=== PATIENT | female | born 2000 | race Asian ===

== ENCOUNTER 2021-10-17 01:44 | Emergency (ER) | payer MEDICAID ==
[~2021-10-17] VITALS: Ht 160 cm; Wt 76.0 kg
[2021-10-17] MEDS ORDERED: TETANUS, DIPHTHERIA, PERTUSSIS VAC/PF 0.5ML (>10YR OLD) IM ONE (02:45)
[2021-10-17] MEDS ORDERED: ACETAMINOPHEN WITH CODEINE 300/30MG TABLET PO ONE (02:45)
[2021-10-17] MEDS ORDERED: BACITRACIN ZINC OINT UDPKT TOP ONE (02:45)
[2021-10-17 04:45] VITALS: BP 121/66
[2021-10-17 04:58] LABS: CLARITY URINE CLOUDY (CLEAR); COLOR URINE YELLOW (YELLOW); KETONES URINE TRACE (NEGATIVE); LEUKOCYTE ESTERASE URINE 2+ (NEGATIVE); NITRITE URINE NEGATIVE (NEGATIVE); OCCULT BLOOD URINE NEGATIVE (NEGATIVE); PH URINE 6.5 (4.5-8.0); PROTEIN URINE TRACE (NEGATIVE); SPECIFIC GRAVITY URINE 1.017 (1.005-1.030)
[2021-10-17] MEDS ORDERED: CEPH250C2 MT (05:06)
== END 2021-10-17 05:47 | disposition home or self-care (01) ==
LOC: ER 01:44
DX: S06.890A Other specified intracranial injury without loss of consciousness, initial encounter (principal); S80.212A Abrasion, left knee, initial encounter; S80.211A Abrasion, right knee, initial encounter; S00.83XA Contusion of other part of head, initial encounter; W18.39XA Other fall on same level, initial encounter; N39.0 Urinary tract infection, site not specified; R03.0 Elevated blood-pressure reading, without diagnosis of hypertension; D16.21 Benign neoplasm of long bones of right lower limb; Y93.89 Activity, other specified; Y00.XXXA Assault by blunt object, initial encounter; Y92.89 Other specified places as the place of occurrence of the external cause
CPT/HCPCS: 73562; 81003; 81025; 90471; 90715; 99285